=== PATIENT | female | born 2005 | race Caucasian/White ===

== ENCOUNTER 2025-06-19 12:19 | Observation (INO) ==
[2025-06-19] MEDS: cefTRIAXone SODIUM 2,000 MG/50 ML BAG IV STA (13:15)
[2025-06-19] MEDS: SODIUM CHLORIDE 0.9% 1,000 ML IV ONE ×2 (13:16→15:23)
--- NOTE | 2025-06-19 13:16 | Emergency Department Note ---
Impression & Plan Pneumonia, Hypoxia ED Provider Note NAME: PEREZ LOPEZ AGE: 19 SEX: F : 2005 ARRIVES VIA: Walk-In INFORMANT: Patient, ED PROVIDER(S): Zi Arango DO CHIEF COMPLAINT: Difficulty breathing HPI: The patient is a 19-year-old female who presented to the emergency department for evaluation of difficulty breathing. The patient has been having symptoms since last Thursday. She was seen at an urgent care yesterday. She was started on doxycycline methylprednisolone and an inhaler. She was also started on Tessalon Perles. She was noted to have an oxygen saturation that was 92%. She was told if she got worse she should come to the emergency department for further evaluation. The patient's been having worsening shortness of breath as well as cough. She denies having any leg pain or leg swelling. The patient has been compliant with her outpatient medication regimen. ROS: See above HPI for pertinent positives & negatives. A total of 10 systems reviewed and were otherwise negative. PAST MEDICAL HISTORY: See Below PAST SURGICAL HISTORY: See Below FAMILY HISTORY: See Below SOCIAL HISTORY: See Below HOME MEDICATIONS: See Below ALLERGIES: See Below VITALS: See Below PHYSICAL EXAMINATION: GENERAL: Patient is awake alert in no acute distress patient is resting comfortably and showing no signs of anxiety EYES: The conjunctivae are clear. The pupils are round and reactive. EARS, NOSE, MOUTH AND THROAT: The nose is without any evidence of any deformity. NECK: The neck is nontender and supple. RESPIRATORY diminished breath sounds are noted at the left base. There is no tachypnea or conversational dyspnea. CARDIOVASCULAR: Regular rate and rhythm noted there no murmurs rubs or gallops normal S1 normal S2. GASTROINTESTINAL: The abdomen is soft. Abdomen is nontender. MUSCULOSKELETAL/EXTREMITIES: There is no evidence of gross deformity full range of motion is noted in the hips and shoulders. SKIN: There is no obvious evidence of any rash. There are no petechiae, pallor or cyanosis noted. NEUROLOGIC: Patient is awake alert and oriented x3 MEDICAL DECISION MAKING: The patient is a 19-year-old female who presented to the emergency department for an evaluation of difficulty breathing. The patient's had difficulty breathing over the last few days with cough. She has also had febrile symptoms. The patient was seen as an outpatient last evening. She was started on single antibiotic treatment with steroids and bronchodilator therapy. The patient was told to go to the emergency department if her symptoms worsen. She presented today because of trouble breathing. She was hypoxic with exertion. She was treated with IV fluids IV antibiotics and supplemental oxygen the emergency department. She was also given a breathing treatment. On reevaluation she was somewhat improved but on ambulation she still had hypoxia. For this reason I discussed her condition with the on-call [facility] hospitalist. They have agreed to evaluate the patient in the emergency department for further management and disposition. Triage Nursing notes reviewed. Prior medical records reviewed Vital Signs: reviewed and remarkable for hypoxia with exertion. Differential diagnosis: Reactive airway disease, pneumonia, pneumothorax, COPD, CHF, infections, cardiac ischemia, pulmonary embolism, musculoskeletal, gastrointestinal, as well as other pathologies. ER treatment provided: See below Diagnostics interpreted by me: ECG: EKG was obtained in the emergency department. My interpretation is normal sinus rhythm at 75 bpm. There is no ectopy. There is no acute ST segment abnormalities noted. QTc was 419 ms. Cardiac Monitoring: An order was placed for continuous cardiac monitoring. The monitor shows a rate of 86 bpm with sinus rhythm. Laboratory studies: As stated above and show below. Imaging studies: See below. Radiographic imaging was reviewed by myself Consultation(s): I discussed this case with the [facility]ist group. Past Med/Surg History Problem List (Updated 06/19/25 @ 15:38 by Zi Arango DO) Hypoxia (Acute) Pneumonia (Acute) Social History Smoking Status: Never smoker Preferred Language: German Feels Safe at Home: Yes Results & Data (ED) Vital Signs Vital Signs - 24 hr 06/19/25 12:29 06/19/25 12:57 06/19/25 13:24 Temperature 36.6 C Temperature Source Temporal Artery Scan Pulse Rate 103 H 90 Pulse Rate [Apical] Respiratory Rate 16 Respiratory Effort / Characteristics Non-Labored Spontaneous Spontaneous Respiratory Depth Normal Respiratory Pattern Regular Blood Pressure 133/85 Blood Pressure [Right Arm] Blood Pressure Mean 101 Blood Pressure Mean [Right Arm] Pulse Oximetry 91 Oxygen Delivery Method Room Air Sepsis Recent Fever Within 48 Hours No Sepsis New/Unexplained Change in Mental Status No Sepsis Action Taken by Nursing No Action Required 06/19/25 14:30 Temperature Temperature Source Pulse Rate Pulse Rate [Apical] 86 Respiratory Rate 22 Respiratory Effort / Characteristics Respiratory Depth Respiratory Pattern Blood Pressure Blood Pressure [Right Arm] 126/93 Blood Pressure Mean Blood Pressure Mean [Right Arm] 104 Pulse Oximetry 96 Oxygen Delivery Method Room Air Sepsis Recent Fever Within 48 Hours Sepsis New/Unexplained Change in Mental Status Sepsis Action Taken by Prison Medications Current Medication List: was personally reviewed by me Laboratory Data Attestation: I reviewed the patient's lab results. 06/19/25 13:12 06/19/25 13:12 Lab Results 06/19/25 06/19/25 Range/Units 13:12 14:57 WBC 7.79 (4.8-10.8) K/ul RBC 4.51 (4.20-5.40) M/uL Hgb 13.9 (12.0-16.0) g/dL Hct 40.2 (37.0-47.0) % MCV 89.1 (80.0-100.0) fL MCH 30.8 (25.0-34.0) pg MCHC 34.6 (32.0-36.0) g/dL RDW Std Deviation 43.8 (36.4-46.3) fL RDW Coeff of Jarrod 13.4 (11.5-14.5) % Plt Count 220 (130-400) K/uL MPV 11.3 (9.4-12.4) fL Immature Gran % (Auto) 0.4 % Neut % (Auto) 86.6 % Lymph % (Auto) 6.5 % [place] % (Auto) 6.5 % Eos % (Auto) 0.0 % Baso % (Auto) 0.0 % Neut # (Auto) 6.74 H (1.40-6.50) K/uL Lymph # (Auto) 0.51 L (1.20-3.40) K/uL [place] # (Auto) 0.51 (0.11-0.59) K/uL Eos # (Auto) 0.00 (0.00-0.50) K/uL Baso # (Auto) 0.00 (0.00-0.20) K/uL Immature Gran # (Auto) 0.03 (0.01-0.20) K/uL Sodium 139 (136-145) mmol/L Potassium 3.7 (3.5-5.1) mmol/L Chloride 101 (98-107) mmol/L Carbon Dioxide 27 (21-32) mmol/L Anion Gap 11 (3-11) BUN 12 (6-23) mg/dl Creatinine 0.72 (0.6-1.2) mg/dl Est Cr Clr Drug Dosing 109.6 ml/min eGFR 122.68 BUN/Creatinine Ratio 16.7 (10-20) Glucose 164 H (70-99(Fasting)) mg/dl Lactate 2.7 H* 3.4 H* (0.4-2.0) mmol/L Calcium 9.6 (8.6-10.3) mg/dl Total Bilirubin 0.5 (0.2-1.0) mg/dl AST 18 (13-39) U/L ALT 10 (7-52) U/L Alkaline Phosphatase 58 (34-104) U/L C-Reactive Protein 5.11 H (0-0.5) mg/dl Total Protein 8.3 (6.0-8.3) gm/dl Albumin 4.3 (3.4-5.0) gm/dl Globulin 4.0 (2.5-4.0) gm/dl Albumin/Globulin Ratio 1.1 (0.9-2) Procalcitonin 0.09 (0-0.5) ng/ml HCG, Qual Negative (Negative) SARS-CoV-2 (PCR) NEGATIVE (Negative) Influenza Type A (PCR) Negative (Neg) Influenza Type B (PCR) Negative (Neg) RSV (RT-PCR) Negative (Neg) Administered Medications Sodium Chloride (Nss) 1,000 mls @ 999 mls/hr IV .Q1H1M ONE Stop: 06/19/25 16:20 Last Admin: 06/19/25 15:23 Dose: 999 mls/hr Documented By: MPD Discontinued Medications Acetaminophen (Acetaminophen 500 Mg Tab) 1,000 mg PO NOW STA Stop: 06/19/25 13:04 Last Admin: 06/19/25 13:17 Dose: 1,000 mg Documented By: MICHELLE Albuterol (Albut/Ipratrop 3mg/0.5mg Neb 3 Ml Vial) 3 ml NEB NOW STA; Protocol Stop: 06/19/25 13:04 Last Admin: 06/19/25 13:20 Dose: 3 ml Documented By: MICHELLE Sodium Chloride (Nss) 1,000 mls @ 999 mls/hr IV .Q1H1M ONE Stop: 06/19/25 14:00 Last Infusion: 06/19/25 14:22 Dose: Infused Documented By: Admin: 06/19/25 13:16 Dose: 999 mls/hr Documented By: MICHELLE Ceftriaxone Sodium (Rocephin) 2,000 mg in 50 mls @ 100 mls/hr IV NOW STA Stop: 06/19/25 13:29 Last Infusion: 06/19/25 14:22 Dose: Infused Documented By: Admin: 06/19/25 13:15 Dose: 100 mls/hr Documented By: MICHELLE Imaging Data Attestation: I personally reviewed and interpreted this imaging study as follows: My Impression: Chest x-ray was obtained in the emergency department. My interpretation is left-sided pneumonia, final report below. Radiologist's Impression: Chest X-Ray 06/19/25 12:38 XR chest 2V PA/lateral CLINICAL HISTORY: Shortness of breath. COMPARISON STUDY: No previous studies for comparison. FINDINGS: There is no pneumothorax or definite pleural effusion. Extensive left lower lobe consolidation is present. Right lung is clear. Cardiac size is normal. Mediastinal contours are normal. IMPRESSION: Extensive left lower lobe consolidation consistent with pneumonia. Post treatment radiographs to ensure resolution are recommended. ACT 112: Negative or not required by law. Electronically signed by: Gee Ray M.D. 06/19/2025 1:20 PM Discharge Plan Visit Data Chief Complaint: Respiratory Problems Stated Complaint: RESPIRATORY ISSUES, SOB ED Provider: Zi Arango Discharge Problem: Pneumonia, Hypoxia Patient Disposition: Being Evaluated by Hospitalist Condition: Fair Forms Stand Alone Forms: My [facility] Referrals Referrals: PCP,NO [Physician] -
[2025-06-19] MEDS: ACETAMINOPHEN 500 MG TAB PO STA (13:17)
[2025-06-19] MEDS: ALBUT/IPRATROP 3MG/0.5MG NEB 3 ML VIAL NEB STA (13:20)
--- NOTE | 2025-06-19 13:21 | XRay Report ---
XR chest 2V PA/lateral CLINICAL HISTORY: Shortness of breath. COMPARISON STUDY: No previous studies for comparison. FINDINGS: There is no pneumothorax or definite pleural effusion. Extensive left lower lobe consolidat ion is present. Right lung is clear. Cardiac size is normal. Mediastinal contours are normal. IMPRESSION: Extensive left lower lobe consolidation consistent with pneumonia. Post treatment radiogr aphs to ensure resolution are recommended. ACT 112: Negative or not required by law. Electronically signed by: Gee Ray M.D. 06/19/2025 1:20 PM
[2025-06-19 13:29] LABS: Hematocrit (blood only) 40.2 % (37.0-47.0); Hemoglobin 13.9 g/dL (12.0-16.0); Immature Granulocytes # (auto) 0.03 K/uL (0.01-0.20); Immature Granulocytes % (auto) 0.4 %; Mean Corpuscular Hemoglobin 30.8 pg (25.0-34.0); Mean Corpuscular Volume 89.1 fL (80.0-100.0); Platelet Count 220 K/uL (130-400); RDW Standard Deviation 43.8 fL (36.4-46.3); Red Blood Count 4.51 M/uL (4.20-5.40); White Blood Count 7.79 K/ul (4.8-10.8)
[2025-06-19 13:46] LABS: Pregnancy Test, Serum Negative (Negative)
[2025-06-19 13:51] LABS: Alanine Aminotransferase 10.0 U/L (7-52); Albumin Globulin Ratio 1.1 (0.9-2); Albumin Level 4.3 gm/dl (3.4-5.0); Alkaline Phosphatase 58.0 U/L (34-104); Anion Gap 11.0 (3-11); Bilirubin,Total 0.5 mg/dl (0.2-1.0); Blood Urea Nitrogen 12.0 mg/dl (6-23); Calcium 9.6 mg/dl (8.6-10.3); Carbon Dioxide 27.0 mmol/L (21-32); Chloride 101.0 mmol/L (98-107); Creatinine Clr Calc Pharmacy 109.6 ml/min; Globulin 4.0 gm/dl (2.5-4.0); Glucose 164.0 mg/dl (70-99(Fasting)); Potassium 3.7 mmol/L (3.5-5.1); Sodium 139.0 mmol/L (136-145); Total Protein 8.3 gm/dl (6.0-8.3)
[2025-06-19 14:01] LABS: Influenza A virus by PCR Negative (Neg); Influenza B virus by PCR Negative (Neg); SARS CoV2 RNA(COVID-19) Ceph NEGATIVE (Negative)
--- NOTE | 2025-06-19 15:54 | History & Physical Report ---
<Statement entered by Radha Ochoa MD - 06/19/25 19:10> I have reviewed vital signs, chart notes, labs and imaging. I have personally seen, evaluated and examined the patient. I have also discussed the management of the patient with the NANCY and I agree with the exam findings documented in the history and physical examination and the documented assessment and plan unless otherwise stated below. On my exam she is well appearing. No breath sounds L base, has egophany. Lungs otherwise clear. Heart reg physiologic/benign systolic murmur CTA chest - personally reviewed film - left lower lobar pneumonia, very consolidated, air bronchograms, no pleural effusion reviewed radiologist reports and there is no PE, milder R sided pneumonia as well A/P: Bilateral CAP with exertional hypoxia -CTX and azithro. Would extend the cephalosporin to 10 days given how consolidated the LLL is. Follow up chest x-ray in several weeks to make sure no late complications (ie pleural effusion) -add flutter valve Date of Service June 19, 2025 Assessment & Plan (1) Pneumonia: (2) Hypoxia: Plan Jane is a pleasant 19-year-old woman with no significant past medical history. She presented with 4 days of shortness of breath and cough. She was seen at urgent care the day prior to admission and was prescribed doxycycline, methylprednisolone, an inhaler, and Tessalon Perles, and was instructed to go to the ED if her symptoms worsen. Due to worsening shortness of breath and cough, she came to the ED. Workup in the ED revealed extensive left lower lobe pneumonia. While in the ED, she had exertional hypoxia with her O2 sat dropping to the 80s when walking. She was admitted under observation for management of such. #Community-acquired pneumonia | Exertional Hypoxia - CXR notes extensive left lower lobe consolidation consistent with pneumonia. Recommend repeat CXR in outpatient setting to ensure resolution - Chest CTA ordered to rule out PE given chest pain with deep breaths - pending - Ceftriaxone 2 g IV daily and Azithromycin 500 mg IV daily - recommend 5 day total antibiotic course - Covid/influenza/RSV negative. Procalcitonin negative at 0.09. CRP elevated at 5.11 - trend with AM labs - Sputum Culture if able to produce - Incentive Spirometer Q1HWA, Mucinex BID, Duonebs Q6H - Supplemental O2 as needed to maintain sats >90% #Elevated lactate - Lactate 2.7 on arrival, given 1 L NSS bolus, repeat lactate 3.4, received additional 1 L NSS bolus, repeat lactate pending #Anxietycontinue Prozac 40 mg HS VTE PPx: Low risk. Encourage ambulation Dispo: Observation on med/surg Updated mother at bedside on admission. History of Present Illness Chief Complaint: Difficulty breathing Primary Care Provider: DO Jane Rubalcava is a pleasant 19-year-old woman with a past medical history of anxiety. She presented from home with difficulty breathing. At the time of my exam, the patient was lying in bed in no acute distress with her mother present at bedside. She states that she began experiencing symptoms of cough with sputum production, shortness of breath, and feeling feverish with chills on Saturday 06/16. She also has had some nausea and vomiting, which she attributes to her "coughing spells." She went to urgent care yesterday 06/18 and was prescribed doxycycline, methylprednisolone, an inhaler, and Tessalon Perles. Her O2 sat was stable at 92% at urgent care. She was instructed to present to the ED if her symptoms worsened. When she woke up this morning, she felt more short of breath and felt like she had difficulty breathing for greater than 30 minutes despite resting so she came to the ED. She reports some chest pain with deep breathing and after her coughing spells. She denies any leg pain or leg swelling. She denies lightheadedness, dizziness, presyncope, syncopal episode, urinary symptoms, diarrhea. Patient reports that she takes Prozac 40 mg at bedtime. She does not use supplemental oxygen at baseline. 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 [place] a [place]mate. She drinks alcohol socially. She denies illicit drug or tobacco use. Vitals on admission are stable. ED physician reported that her O2 saturation dropped to the 80s when walking. Labs on admission are significant for elevated lactate at 2.7 with repeat 3.4, elevated CRP at 5.11. No leukocytosis but slight leftward shift with elevated neutrophil count. H&H and platelets WNL. Electrolytes WNL. Renal function WNL. Liver enzymes WNL. Procalcitonin negative at 0.09. COVID/flu/RSV negative. CXR on admission reveals extensive left lower lobe consolidation consistent with pneumonia. We discussed code status, patient wishes to be a full code. Past Med/Surg History Problem List (Updated 06/19/25 @ 15:57 by Radha Villalta PA-C) Hypoxia (Acute) Pneumonia (Acute) Social History Smoking Status: Never smoker Preferred Language: Greek Feels Safe at Home: Yes Review of Systems Review of Systems: All systems reviewed & are unremarkable except as noted in HPI & below Respiratory: + cough, + dyspnea, + pain on inspiratio n and + sputum production Physical Exam Physical Exam: General: No acute distress, nondiaphoretic, well-developed, well-nourished. Skin: Warm, dry. No rashes or peripheral edema noted. HEENT: PERRLA. Moist mucous membranes. Cardiac: Regular rate and rhythm without murmurs gallops or rubs. Pulm: Diminished breath sounds in left base but otherwise clear to auscultation without wheezes, rales or rhonchi. Normal respiratory effort. 96% on room air. Abdominal: Soft, nontender, nondistended. Bowel sounds present. MSK: Calves are symmetrical and nontender bilaterally. Neuro: A&O x3. No focal neurological deficits. Results & Data Results & Data Vital Signs (Past 12 Hours) Vital Signs Temp Pulse Pulse Resp BP BP Pulse Ox 06/19/25 14:30 86 22 126/93 96 06/19/25 13:24 90 06/19/25 12:29 97.9 F 103 H 16 133/85 91 O2 Del Method 06/19/25 14:30 Room Air 06/19/25 13:24 06/19/25 12:29 Room Air Laboratory Results Reviewed CBC with differential, CMP/chemistries, serologies Diagnostic Findings Reviewed CXR, EKG PG Care Time/CCT Total # of Minutes Spent Total Time Spent with Patient: Total time spent is greater than 50% in coordination of care (as documented) at patient's floor/unit and/or counseling patient: Coding Level of Care Code 40398 INT INP/OBS CARE 3/75MIN Diagnoses Pneumonia of left lower lobe due to infectious organism J18.9 Laterality: left Lung location: lower lobe of lung Pneumonia type: due to unspecified organism Hypoxia R09.02 (1) Pneumonia Laterality: left Lung location: lower lobe of lung Pneumonia type: due to unspecified organism Qualified Code(s): J18.9 - Pneumonia, unspecified organism
[2025-06-19] MEDS: OPTIRAY 320 125ml IV ONE (17:01)
[2025-06-19] MEDS: AZITHROMYCIN 500 MG/255 ML BAG IV SCH (17:09)
[2025-06-19] MEDS ORDERED: POLYETHYLENE (MIRALAX) 17 GM PACK PO PRN (17:13)
[2025-06-19] MEDS ORDERED: MELATONIN 3 MG TAB PO PRN (17:13)
[2025-06-19] MEDS ORDERED: ACETAMINOPHEN 325 MG TAB PO PRN (17:13)
--- NOTE | 2025-06-19 17:33 | CT Scan Report ---
Technique: Axial computed tomography images were obtained of the chest after the administration of intravenous contrast according to the CT angiogram protocol Findings: There is no definite sign of pulmonary embolism. There is extensive left lower lobe alveolar consolidation. There are mild left upper lobe groundglass and alveolar opacities also. There are mild centrilobular interstitial and nodular opacities in the right upper lobe and right lower lobe. This is consistent with pneumonia. There is no pleural effusion or pneumothorax. There is no sign of pulmonary fibrosis or other diffuse interstitial process. No endobronchial lesion is seen There is no mediastinal, hilar, or axillary adenopathy. The thoracic aorta appears unremarkable with no sign of aneurysm or dissection. There is no pericardial effusion The visualized upper abdomen appears unremarkable. No fracture is seen. No focal osseous lesion is evident Impression: 1. No definite sign of pulmonary embolism 2. Extensive left lung pneumonia and mild right lower lobe pneumonia ACT 112: Positive. There are findings on this exam that require communication between the performing entity and the patient following Patient Test Result Information Act ([place] ACT 112) guidelines. Electronically signed by Daniel Jarrett 06-19-2025 5:32 PM
[2025-06-19] MEDS: ALBUT/IPRATROP 3MG/0.5MG NEB 3 ML VIAL NEB SCH (18:56)
[2025-06-19] MEDS: ONDANSETRON INJ 2 MG/ML 2 ML VIAL IV PRN (19:00)
[2025-06-19] MEDS ORDERED: IBUPROFEN 200 MG TAB PO PRN (19:04)
[2025-06-19] MEDS ORDERED: ALBUT/IPRATROP 3MG/0.5MG NEB 3 ML VIAL NEB PRN (19:04)
[2025-06-19] MEDS ORDERED: INFLUENZA VACC TS2025-26(6m+)/PF (IIV3) 0.5mL Syr IM ONE (20:45)
--- NOTE | 2025-06-19 21:57 | Electrocardiogram Report ---
Test Reason : Blood Pressure : */* mmHG Vent. Rate : 75 BPM Atrial Rate : 75 BPM P-R Int : 118 ms QRS Dur : 78 ms QT Int : 376 ms P-R-T Axes : 72 63 61 degrees QTcB Int : 419 ms Normal sinus rhythm Normal ECG No previous ECGs available Confirmed by Cory Salinas ([id number]) on 06/19/2025 9:57:36 PM Referred By: REFERRED SELF Confirmed By: Cory Salinas
[2025-06-19] MEDS: guaiFENesin 600 MG TABCR PO SCH (22:17)
[2025-06-19 22:53] VITALS: RESP 16
[2025-06-20] MEDS: COUGH DROP (SUGAR FREE) LOZ 24 LOZ/1 BOX BUCCAL ONE (00:15)
[2025-06-20] MEDS ORDERED: COUGH DROP (SUGAR FREE) LOZ 24 LOZ/1 BOX BUCCAL PRN (00:30)
[2025-06-20 06:22] LABS: Anion Gap 5.0 (3-11); Blood Urea Nitrogen 7.0 mg/dl (6-23); Calcium 8.5 mg/dl (8.6-10.3); Carbon Dioxide 27.0 mmol/L (21-32); Chloride 107.0 mmol/L (98-107); Creatinine Clr Calc Pharmacy 134.7 ml/min; Glucose 104.0 mg/dl (70-99(Fasting)); Potassium 3.9 mmol/L (3.5-5.1); Sodium 139.0 mmol/L (136-145)
[2025-06-20 06:26] LABS: Hematocrit (blood only) 30.7 % (37.0-47.0); Hemoglobin 10.4 g/dL (12.0-16.0); Mean Corpuscular Hemoglobin 30.5 pg (25.0-34.0); Mean Corpuscular Volume 90.0 fL (80.0-100.0); Platelet Count 176 K/uL (130-400); RDW Standard Deviation 45.2 fL (36.4-46.3); Red Blood Count 3.41 M/uL (4.20-5.40); White Blood Count 6.59 K/ul (4.8-10.8)
[2025-06-20 06:29] LABS: Immature Granulocytes # (auto) 0.04 K/uL (0.01-0.20); Immature Granulocytes % (auto) 0.6 %; Polychromasia 1+
[2025-06-20 08:04] VITALS: BP 104/65; PULSE 69; TEMP 98.6; O2SAT 95
[2025-06-20] MEDS: cefTRIAXone SODIUM 2,000 MG/50 ML BAG IV SCH (12:23)
--- NOTE | 2025-06-20 17:51 | Discharge Summary ---
Discharge Summary Date of Service June 20, 2025 Principal Dx & Hospital Course #1 = Principal Diagnosis (1) Pneumonia: (2) Hypoxia: Plan Jane is a pleasant 19-year-old woman with no significant past medical history. She presented with 4 days of shortness of breath and cough. She was seen at urgent care the day prior to admission and was prescribed doxycycline, methylprednisolone, an inhaler, and Tessalon Perles, and was instructed to go to the ED if her symptoms worsen. Due to worsening shortness of breath and cough, she came to the ED. Workup in the ED revealed extensive left lower lobe pneumonia. While in the ED, she had exertional hypoxia with her O2 sat dropping to the 80s when walking. She was admitted under observation for management of such. #Community-acquired pneumonia | Exertional Hypoxia - CXR notes extensive left lower lobe consolidation consistent with pneumonia. Chest CTA negative for PE but revealed extensive left lower lobe pneumonia and more mild right lower lobe pneumonia - Treated with ceftriaxone IV and azithromycin IV while hospitalized (received 2 doses of each). Discharged on azithromycin 500 mg p.o. x 3 additional days and cefuroxime 500 mg twice daily x 8 additional days. Extended course of cephalosporin given the extensive consolidation noted on imaging - Covid/influenza/RSV negative. Procalcitonin negative at 0.09. CRP elevated at 5.11, down trended to 2.5 - Continue supportive measures at home including Tylenol as needed for fever/pain, Mucinex for congestion - Performed ambulatory trial while monitoring O2 level and O2 sat remained between 93-95% - Recommend repeat chest x-ray in 2-3 weeks to ensure resolution of pneumonia and monitor for late complications #Elevated lactate - Lactate 2.7 on arrival, given 1 L NSS bolus, repeat lactate 3.4, received additional 1 L NSS bolus, repeat lactate 1.6 #Anxietycontinue Prozac 40 mg HS VTE PPx: Low risk. Encourage ambulation Dispo: Discharged home on 06/20 Notes For Next Care Provider Please repeat CXR in 2-3 weeks. Medication Changes From Visit Azithromycin 500 mg daily x 3 additional days Cefuroxime 500 mg twice daily x 8 additional days Encouraged her to use [id number] Tylenol and Mucinex as needed Admission HPI Per Admitting Provider Jane is a pleasant 19-year-old woman with a past medical history of anxiety. She presented from home with difficulty breathing. At the time of my exam, the patient was lying in bed in no acute distress with her mother present at bedside. She states that she began experiencing symptoms of cough with sputum production, shortness of breath, and feeling feverish with chills on Saturday 06/16. She also has had some nausea and vomiting, which she attributes to her "coughing spells." She went to urgent care yesterday 06/18 and was prescribed doxycycline, methylprednisolone, an inhaler, and Tessalon Perles. Her O2 sat was stable at 92% at urgent care. She was instructed to present to the ED if her symptoms worsened. When she woke up this morning, she felt more short of breath and felt like she had difficulty breathing for greater than 30 minutes despite resting so she came to the ED. She reports some chest pain with deep breathing and after her coughing spells. She denies any leg pain or leg swelling. She denies lightheadedness, dizziness, presyncope, syncopal episode, urinary symptoms, diarrhea. Patient reports that she takes Prozac 40 mg at bedtime. She does not use supplemental oxygen at baseline. 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 [place] a [place]mate. She drinks alcohol socially. She denies illicit drug or tobacco use. Vitals on admission are stable. ED physician reported that her O2 saturation dropped to the 80s when walking. Labs on admission are significant for elevated lactate at 2.7 with repeat 3.4, elevated CRP at 5.11. No leukocytosis but slight leftward shift with elevated neutrophil count. H&H and platelets WNL. Electrolytes WNL. Renal function WNL. Liver enzymes WNL. Procalcitonin negative at 0.09. COVID/flu/RSV negative. CXR on admission reveals extensive left lower lobe consolidation consistent with pneumonia. We discussed code status, patient wishes to be a full code. Discharge Exam General: No acute distress, nondiaphoretic, well-developed, well-nourished. Skin: Warm, dry. No rashes or peripheral edema noted. HEENT: PERRLA. Moist mucous membranes. Cardiac: Regular rate and rhythm without murmurs gallops or rubs. Pulm: Diminished breath sounds in left base but otherwise clear to auscultation without wheezes, rales or rhonchi. Normal respiratory effort. 95% on room air. Abdominal: Soft, nontender, nondistended. Bowel sounds present. MSK: Calves are symmetrical and nontender bilaterally. Neuro: A&O x3. No focal neurological deficits. Discharge Plan Discharge Items Patient Disposition: Home - Self-Care Reason For Visit: PNEUMONIA, HYPOXIA Discharge Diagnosis: Extensive left lower lobe pneumonia, mild right lower lobe pneumonia Condition on Discharge: Fair Activity: Per Instructions section Non-emergency contact: Primary Care Provider Call non-emergency contact if: you have any medication questions, your symptoms worsen and you have a fever Follow-up/Referrals: Staci Bonilla, [Primary Care Provider] - (Follow-up in 1-2 weeks) Diet: Regular Addtl Attending Provider Instructions: Jane, You were admitted to the hospital due to bilateral pneumonia. The pneumonia in your left lower lobe is much more extensive than in your right lower lobe. You were treated with IV antibiotics while in the hospital, and will continue taking oral antibiotics at home to complete your treatment course. Your oxygen level was initially dropping with ambulation, however after starting treatment, your oxygen levels have remained within normal limits both at rest and with activity. You had a CT scan of your chest that was negative for blood clots in your lungs. Upon discharge from the hospital: * Take it easy for the next few days while your body is recovering from this infection. * Take azithromycin 500 mg once daily x 3 additional days. * Take cefuroxime 500 mg twice daily x 8 additional days. * You do NOT need to continue taking the steroids or doxycycline that was prescribed from urgent care. * You can continue to use the Tessalon Perles and inhaler as needed. * You can use [id number] supportive measures as needed, such as Tylenol for fever/pain and Mucinex for congestion. * I recommend getting a repeat chest x-ray in 2-3 weeks to ensure resolution of your pneumonia and make sure there are no late complications. * Follow-up with your PCP in 1-2 weeks. Please return to the hospital if you experience any of the following: New or worsening shortness of breath, difficulty breathing, chest pain, heart palpitations, inability to tolerate oral intake, persistent fever, dizziness, passing out, confusion, or any other symptoms concerning for you. It was a pleasure taking care of you while you were in the hospital, Radha Villalta PA-C Pending Studies at Discharge: No Stand-Alone Forms: My [facility], Work/School Release, Smoking Cessation Medications and DC Order Prescriptions: New cefuroxime axetil 500 mg tablet 500 mg PO BID 8 Days Qty: 16 0RF azithromycin 500 mg tablet 500 mg PO DAILY Qty: 3 0RF Continued fluoxetine 40 mg Capsule 40 mg PO PM Discharge Orders: Discharge Order (Routine); Ordered 06/20/25 Ordered By: Radha Flores/Other Patient Handouts: Preventing Pneumonia Admission Data Admit Date/Time: 06/19/25 15:35 Attending Provider: Radha Ochoa Admit Provider: Radha Ochoa Primary Care Provider: Staci Bonilla Other Providers: Radha Ochoa Other Interventions: Discharge Summary Assessment (RN) Last Done: 06/20/25 14:00 Hospital Stay Data Consultations 06/19/25 15:18 ED Decision to Admit Stat Diagnostic Imagining Performed Chest X-Ray 06/19/25 12:38 XR chest 2V PA/lateral CLINICAL HISTORY: Shortness of breath. COMPARISON STUDY: No previous studies for comparison. FINDINGS: There is no pneumothorax or definite pleural effusion. Extensive left lower lobe consolidation is present. Right lung is clear. Cardiac size is normal. Mediastinal contours are normal. IMPRESSION: Extensive left lower lobe consolidation consistent with pneumonia. Post treatment radiographs to ensure resolution are recommended. ACT 112: Negative or not required by law. Electronically signed by: Gee Ray M.D. 06/19/2025 1:20 PM Chest CTA 06/19/25 16:42 Technique: Axial computed tomography images were obtained of the chest after the administration of intravenous contrast according to the CT angiogram protocol Findings: There is no definite sign of pulmonary embolism. There is extensive left lower lobe alveolar consolidation. There are mild left upper lobe groundglass and alveolar opacities also. There are mild centrilobular interstitial and nodular opacities in the right upper lobe and right lower lobe. This is consistent with pneumonia. There is no pleural effusion or pneumothorax. There is no sign of pulmonary fibrosis or other diffuse interstitial process. No endobronchial lesion is seen There is no mediastinal, hilar, or axillary adenopathy. The thoracic aorta appears unremarkable with no sign of aneurysm or dissection. There is no pericardial effusion The visualized upper abdomen appears unremarkable. No fracture is seen. No focal osseous lesion is evident Impression: 1. No definite sign of pulmonary embolism 2. Extensive left lung pneumonia and mild right lower lobe pneumonia ACT 112: Positive. There are findings on this exam that require communication between the performing entity and the patient following Patient Test Result Information Act ([place] ACT 112) guidelines. Electronically signed by Daniel Jarrett 06-19-2025 5:32 PM Pending Results Patient Have Any Pending Studies at Discharge: No Discharge Instructions Given to Patient (Per Discharging Provider) Jane, You were admitted to the hospital due to bilateral pneumonia. The pneumonia in your left lower lobe is much more extensive than in your right lower lobe. You were treated with IV antibiotics while in the hospital, and will continue taking oral antibiotics at home to complete your treatment course. Your oxygen level was initially dropping with ambulation, however after starting treatment, your oxygen levels have remained within normal limits both at rest and with activity. You had a CT scan of your chest that was negative for blood clots in your lungs. Upon discharge from the hospital: * Take it easy for the next few days while your body is recovering from this infection. * Take azithromycin 500 mg once daily x 3 additional days. * Take cefuroxime 500 mg twice daily x 8 additional days. * You do NOT need to continue taking the steroids or doxycycline that was prescribed from urgent care. * You can continue to use the Tessalon Perles and inhaler as needed. * You can use [id number] supportive measures as needed, such as Tylenol for fever/pain and Mucinex for congestion. * I recommend getting a repeat chest x-ray in 2-3 weeks to ensure resolution of your pneumonia and make sure there are no late complications. * Follow-up with your PCP in 1-2 weeks. Please return to the hospital if you experience any of the following: New or worsening shortness of breath, difficulty breathing, chest pain, heart palpitations, inability to tolerate oral intake, persistent fever, dizziness, passing out, confusion, or any other symptoms concerning for you. It was a pleasure taking care of you while you were in the hospital, Radha Villalta PA-C Total Time Total Time Spent Total Time Spent (In Minutes): Greater than 30 minutes spent completing this discharge process including direct patient care, medication reconciliation, documentation, review of labs and images, and coordination of care. Coding Level of Care Code 67973 INP/OBS DISCH >30 MIN Diagnoses Pneumonia of left lower lobe due to infectious organism J18.9 Laterality: left Lung location: lower lobe of lung Pneumonia type: due to unspecified organism Hypoxia R09.02
== END 2025-06-20 15:14 | disposition home or self-care (01) ==
LOC: SUATTDRO → EDINP 12:19 → ED 12:19 → 3E 17:21